=== PATIENT | male | born 1950 | race Caucasian/White ===

== ENCOUNTER 2017-04-06 06:48 | Day surgery (SDC) | payer OTHER ==
[2017-04-06] MEDS ORDERED: ceFAZolin 2 GM/SWFI 2 GM/20 ML SYR IVP ONE (07:07)
[2017-04-06] MEDS ORDERED: LR 1,000 ML IV ONE (07:40)
[2017-04-06] MEDS ORDERED: BUPIVACAINE 0.5% 30 ML SDV ONE ×2 (07:42→07:47)
--- NOTE | 2017-04-06 07:57 | PDANEPAE ---
ANE History of Present Illness right inguinal hernia ANE Past Medical History - Cardiovascular History Hx Hypertension: No Hx Arrhythmias: No Hx Chest Pain: No Hx Coronary Artery / Peripheral Vascular Disease: No Hx CHF / Valvular Disease: No Hx Palpitations: No - Pulmonary History Hx COPD: No Hx Asthma/Reactive Airway Disease: No Hx Recent Upper Respiratory Infection: No Hx Oxygen in Use at Home: No Hx Sleep Apnea: No Sleep Apnea Screening Result - Last Documented: Negative - Neurologic History Hx Cerebrovascular Accident: No Hx Seizures: No Hx Dementia: No - Endocrine History Hx Diabetes: No Hypothyroid: No Obesity: no - Renal History Hx Renal Disorders: No - Liver History Hx Hepatic Disorders: No - Neurological & Psychiatric Hx Hx Neurological and Psychiatric Disorders: Yes Neurological / Psychiatric History Comment: claustaphobia/anxiety - Cancer History Hx Cancer: No - Congenital Disorder History Hx Congenital Disorders: No - GI History Hx Gastrointestinal Disorders: No - Other Health History Other Health History: psoriasis elbows and knees - Chronic Pain History Chronic Pain: Yes (legs) - Surgical History Prior Surgeries: biopsyof bladder ANE Review of Systems Review of systems is: negative Review of Systems: - Exercise capacity METS (RN): 5 METS ANE Patient History - Allergies Allergies/Adverse Reactions: No Known Allergies Allergy (Verified 04/03/17 15:13) - Home Medications Home medications: home medication list seen and reviewed Home Medications: Aspirin 81mg (*) 04/03/17 [Last Taken 04/03/17] Centrum Silver Tablet 04/03/17 [Last Taken 04/05/17 18:00] Fluoxetine HCl 04/03/17 [Last Taken 04/05/17 18:00] Lansoprazole 04/03/17 [Last Taken 04/05/17 06:00] Levothyroxine Sodium 04/03/17 [Last Taken 04/05/17 06:00] Simvastatin 04/03/17 [Last Taken 04/05/17 18:00] - NPO status NPO Since - Liquids (Date): 04/05/17 NPO Since - Liquids (Time): 21:00 NPO Since - Solids (Date): 04/05/17 NPO Since - Solids (Time): 20:30 - Anes Hx Anes Hx: no prior problems - Smoking Hx Smoking Status: Former smoker - Family Anes Hx Family Hx Anesthesia Complications: none ANE Labs/Vital Signs - Vital Signs Blood Pressure: 131/82 Heart Rate: 66 Respiratory Rate: 16 O2 Sat (%): 94 Height: 175.26 cm Weight: 97.522 kg ANE Physical Exam - Airway Neck exam: FROM Mallampati Score: Class 1 Mouth exam: normal dental/mouth exam - Pulmonary Pulmonary: no respiratory distress - Cardiovascular Cardiovascular: regular rate and rhythym - ASA Status ASA Status: II ANE Anesthesia Plan Anesthesia Plan: general endotracheal anesthesia
[2017-04-06] MEDS ORDERED: MIDAZOLAM 2 MG/2 ML VIAL IVP ONE (08:04)
[2017-04-06] MEDS ORDERED: PROPOFOL 200 MG/20 ML VIAL ONE ×2 (08:08)
[2017-04-06] MEDS ORDERED: fentaNYL 100 MCG/2 ML INJ ONE (08:08)
[2017-04-06] MEDS ORDERED: LIDOCAINE 2% 5 ML SDV ONE (08:10)
[2017-04-06] MEDS ORDERED: ROCURONIUM 50 MG/5 ML VIAL ONE (08:11)
--- NOTE | 2017-04-06 08:12 | PDHPUP ---
History & Physical Update H&P update statement: This history and physical update is based on an assessment of the patient which was completed after admission or registration (within 24 hours), but prior to the surgery/procedure. H&P update: H&P reviewed & patient examined, no change in patient's condition since H&P completed
[2017-04-06] MEDS ORDERED: DEXAMETHASONE 4 MG/ML VIAL ONE (08:34)
[2017-04-06] MEDS ORDERED: KETOROLAC 30 MG/1 ML SDV ONE (08:35)
[2017-04-06] MEDS ORDERED: SUGAMMADEX SODIUM 200 MG/2 ML VIAL IVP ONE (08:35)
[2017-04-06] MEDS ORDERED: ONDANSETRON 4 MG/2 ML VIAL ONE (08:35)
--- NOTE | 2017-04-06 09:01 | POSTOPPROG ---
Post Op Note Date of Operation: 04/06/17 Surgeon: Milagro Guerrero Licensed Veterinary Technician: jacki Anesthesiologist: saumya Anesthesia: GET(General Endotracheal) Pre-op Diagnosis: RIH Post-op Diagnosis: RIH Indication: 66 yo with RIH Procedure: lap RIH Findings: fat containing hernia Inf/Abcess present in the surg proc area at time of surgery?: No EBL: Minimal
[2017-04-06] MEDS ORDERED: NALOXONE HCL 0.4 MG/ML INJ IVP PRN (09:19)
[2017-04-06] MEDS ORDERED: OXYCODONE/APAP 5/325 TAB PO PRN (09:19)
[2017-04-06] MEDS ORDERED: ONDANSETRON 4 MG/2 ML VIAL IVP PRN (09:19)
[2017-04-06] MEDS ORDERED: PROMETHAZINE HCL 25 MG/ML INJ IVP PRN (09:19)
[2017-04-06] MEDS ORDERED: fentaNYL 100 MCG/2 ML INJ IVP PRN (09:19)
[2017-04-06] MEDS ORDERED: HYDROCODONE/APAP 5/325 TAB PO PRN (09:19)
[2017-04-06] MEDS ORDERED: ACETAMINOPHEN 500 MG TAB PO PRN (09:19)
[2017-04-06] MEDS ORDERED: ALBUTEROL 3 ML DEYVIAL IH PRN (09:19)
[2017-04-06] MEDS ORDERED: HYDROmorphONE/DILAUDID 1 MG/ML INJ IVP PRN (09:19)
--- NOTE | 2017-04-06 09:19 | POSTANESTH ---
Post Anesthetic Evaluation Cardiovascular Status: Normal, Stable Respiratory Status: Normal, Stable Level of Consciousness/Mental Status: Can Participate in Eval Pain Control: Adequate, Prn Tx Ordered Nausea/Vomiting Control: Adequate, Prn Tx Ordered Complications Possibly Related to Anesthesia: None Noted
[2017-04-06 09:56] VITALS: PULSE 61; RESP 18; TEMP 96.8
[2017-04-06 10:46] VITALS: BP 103/66; O2SAT 94
--- NOTE | 2017-04-08 17:42 | GOP ---
[f rep st] OPERATIVE REPORT DATE OF OPERATION: 04/06/2017 SURGEON: Milagro Guerrero MD WARE FINISHER: Laine Eduardo, AMY. ANESTHESIA: General. ANESTHESIOLOGIST: Jian Alejo MD. PREOPERATIVE DIAGNOSIS: Right inguinal hernia. POSTOPERATIVE DIAGNOSIS: Initial indirect inguinal hernia. PROCEDURE PERFORMED: Laparoscopic right inguinal hernia repair with mesh. FINDINGS: Fat-containing hernia. SPECIMENS: None. ESTIMATED BLOOD LOSS: Minimal. INDICATIONS: The patient is a 66-year-old man with a right inguinal hernia. DESCRIPTION OF PROCEDURE: Patient was brought into the operating room, placed supine on the table. General anesthesia was administered. His abdomen and groin were prepped and draped in the usual ster ile fashion. I infiltrated all sites with 0.5% Marcaine prior to making incisions. I made an incisi on beneath his umbilicus. I dissected down through the subcutaneous tissues. I encountered his ante rior rectus sheath. I divided this. I swept his muscles laterally and inserted a balloon-tipped tro car directed toward his pubis. I performed hand insufflation with the camera in place. I then switc hed the dissecting balloon for the working balloon, connected to carbon dioxide pressure of 15 mmHg. He was placed in the Trendelenburg position. I placed a 5 mm suprapubic trocar and a 5 mm trocar bet ween the first and second. I kept the inferior epigastric vessels anterior to the plane. I swept aw ay the pubis, identified the cord and cord structures, and reduced a fat-containing hernia from this area. There was no evidence of direct inguinal hernia. I unrolled a piece of laparoscopic self-fixa ting ProGrip mesh to cover the direct, indirect, and femoral spaces. This was tacked to the pubis as well as anteriorly. I then explored his left side, and no hernia was noted. The preperitoneal spac e was allowed to desufflate. I closed the fascia with 0 Vicryl. I closed the skin with 4-0 Monocryl . Dermabond applied. He was awakened in the operating room, extubated, and transferred to the PACU in stable condition thank you. /[id number]/MODL
== END 2017-04-06 10:35 | disposition home or self-care (01) ==
LOC: FSGY 06:48
PROVIDERS: ATTEND Surgery
PROC: 0YU54JZ Supplement Right Inguinal Region with Synthetic Substitute, Percutaneous Endoscopic Approach (ICD-10-PCS; principal; 2017-04-06 08:30)
DX: K40.90 Unilateral inguinal hernia, without obstruction or gangrene, not specified as recurrent (principal); N40.0 Benign prostatic hyperplasia without lower urinary tract symptoms; E78.00 Pure hypercholesterolemia, unspecified; E03.9 Hypothyroidism, unspecified; F32.9 Major depressive disorder, single episode, unspecified; Z87.891 Personal history of nicotine dependence
CPT/HCPCS: C1727; C1781; J0690; J1100; J1885; J2250; J2405; J2704; J3010

== ENCOUNTER → 2017-06-21 | Outpatient (CLI) | payer OTHER | LOC: CIMAGING 07:13 | PROVIDERS: ATTEND Family Medicine | DX: R16.0 Hepatomegaly, not elsewhere classified (principal); K76.0 Fatty (change of) liver, not elsewhere classified | CPT/HCPCS: 76705-PO ==